=== PATIENT | female | born 1985 | race Hispanic/Latino ===

== ENCOUNTER 2022-03-05 18:30 | Emergency (ER) | payer SELFPAY ==
[2022-03-05 18:56] VITALS: BP 139/91
[2022-03-05 19:37] LABS: Basophils # (Auto) 0.1 K/mm3 (0.0-0.1); Basophils % (Auto) 0.9 % (0.0-1.8); Eosinophils # (Auto) 0.2 K/mm3 (0.0-0.4); Eosinophils % (Auto) 2.2 % (0.0-4.3); Hematocrit 40.6 % (30.3-42.9); Hemoglobin 13.8 gm/dl (10.1-14.3); Lymphocytes # (Auto) 2.4 K/mm3 (1.2-5.4); Lymphocytes % (Auto) 35.5 % (13.4-35.0); Mean Corpuscular HGB Conc 34 % (30-34); Mean Corpuscular Volume 85 fl (79-97); Monocytes # (Auto) 0.5 K/mm3 (0.0-0.8); Monocytes % (Auto) 6.9 % (0.0-7.3); Platelet Count 233 K/mm3 (140-440); Red Blood Count 4.81 M/mm3 (3.65-5.03); Red Cell Distribution Width 15.3 % (13.2-15.2)
[2022-03-05 19:54] LABS: Alanine Aminotransferase 17 units/L (7-56); Albumin 4.3 g/dL (3.9-5); Blood Urea Nitrogen 11 mg/dL (7-17); Calcium 9.1 mg/dL (8.4-10.2); Hemolysis Index 4
[2022-03-05 20:16] LABS: Mucus,Urine 1+ /HPF
[2022-03-05 20:26] LABS: BUN/Creatinine Ratio 18
[2022-03-05 20:35] LABS: HCG Qualitative,Urine Positive (Negative)
[2022-03-05 20:36] LABS: Color,Urine Dark Yellow (Yellow)
[2022-03-05 20:37] LABS: Blood,Urine Trace (Negative)
[2022-03-05 20:43] LABS: Bilirubin,Urine NEG (Negative); Urobilinogen,Urine < 2.0 mg/dL (<2.0)
--- NOTE | 2022-03-06 03:22 | Ultrasound Report ---
US OB <= 14 weeks fetus INDICATION / CLINICAL INFORMATION: Vaginal bleeding pain beta-hCG 14.73 COMPARISON: None available. TECHNIQUE: Using a transcutaneous probe, multiple grayscale, color Doppler, and spectral Doppler imag es of the uterus and fetus were captured and stored. FINDINGS: The clinical estimated gestational age based on last menstrual period of 02/07/2022 is 3 weeks 6 days. EDC 11/14/2022. Uterus measures 8.6 x 4.0 x 5.6 cm. No intrauterine gestational sac is demonstrated. The endometrial stripe measures 2 mm. Right ovary measures 3.8 x 2.2 x 2.1 cm and is within normal limits. Color flow is present. No spectr al Doppler application occurred. Left ovary measures 3.2 x 1.3 x 2.2 cm. Color flow present. No spectral Doppler applied. The urinary bladder is decompressed not well visualized. No adnexal masses or free fluid demonstrated . IMPRESSION: 1. No evidence of intrauterine . No suggest decidual reaction. Signer Name: Marcos Larson II, MD Signed: 03/06/2022 3:18 AM Workstation Name: [id number]
== END 2022-03-06 03:25 | disposition home or self-care (01) ==
LOC: ED 18:30
DX: O20.9 Hemorrhage in early pregnancy, unspecified (principal); Z3A.01 Less than 8 weeks gestation of pregnancy; Z53.21 Procedure and treatment not carried out due to patient leaving prior to being seen by health care provider
CPT/HCPCS: 36415; 76801; 80053; 81001; 81025; 84702; 85025; 99284